=== PATIENT | male | born 1950 | race Caucasian/White ===

== ENCOUNTER 2019-03-07 04:17 | Inpatient (IN) | payer MEDICARE, BC ==
[~2019-03-07] VITALS: Ht 170.2 cm; Wt 77.1 kg
--- NOTE | 2019-03-07 04:20 | NUR ---
Patient A&O x4. Ambulating with steady gait with at bedside. c/o dizziness, Nausea, vomiting x5, and weakness. since 1800 yesterday. per patient hasnt been able to keep food or fluids. Patient breathing even and unlabored. Speech is clear and able to make needs known / follow commands. Denies any distress. patient noted diaphoretic and tachypneic. O2 sat at 97% on RA. POC blood sugar at 157.
--- NOTE | 2019-03-07 04:35 | NUR ---
Dr. Tamayo at bedside for MSE
[2019-03-07] MEDS ORDERED: HYDROMORPHONE 1 MG/1 ML DISP.SYRIN IV ONE (04:45)
[2019-03-07] MEDS ORDERED: IV NORMAL SALINE 1000 ML BAG IV ONE ×3 (04:45→06:30)
[2019-03-07] MEDS ORDERED: ONDANSETRON 4 MG/2 ML VIAL IV ONE (04:45)
[2019-03-07] MEDS ORDERED: HYDROMORPHONE 1 MG/1 ML DISP.SYRIN ONE (04:48)
[2019-03-07] MEDS ORDERED: ONDANSETRON 4 MG/2 ML VIAL ONE (04:48)
[2019-03-07 05:19] LABS: BASOPHILS # (AUTO) 0.1 K/uL (0.0-8.0); BASOPHILS % (AUTO) 0.4 % (0.0-2.0); EOSINOPHILS # (AUTO) 0.6 K/uL (0.0-0.7); EOSINOPHILS % (AUTO) 3.6 % (0.0-7.0); HEMATOCRIT 52.3 % (36.7-47.1); HEMOGLOBIN 17.6 g/dL (12.5-16.3); LYMPHOCYTES # (AUTO) 0.8 K/uL (20.0-40.0); MEAN CORPUSCULAR HEMOGLOBIN 30.6 uug (23.8-33.4); MEAN CORPUSCULAR HGB CONC 34 g/dL (32.5-36.3); MEAN CORPUSCULAR VOLUME 90.6 fL (73.0-96.2); MONOCYTES # (AUTO) 0.9 K/uL (2.0-10.0); MONOCYTES % (AUTO) 5.7 % (0.0-11.0); NEUTROPHILS # (AUTO) 13.6 K/uL (1.8-8.9); NEUTROPHILS % (AUTO) 85.3 % (38.5-71.5); PLATELET COUNT (AUTO) 209 K/uL (152-348); RED BLOOD CELL COUNT(AUTO) 5.77 MIL/uL (4.06-5.63)
--- NOTE | 2019-03-07 05:20 | NUR ---
Patient taken to CT scan in stable condition
[2019-03-07 05:25] LABS: CREATININE 1.8 mg/dL (0.6-1.3)
[2019-03-07 05:26] LABS: *BLOOD, URINE NEGATIVE (NEGATIVE); *CLARITY,URINE CLEAR (CLEAR); *COLOR,URINE DARK YELLOW (YELLOW); *KETONES,URINE 1+ (NEGATIVE); LEUKOCYTE ESTERASE ,URINE NEGATIVE (NEGATIVE); NITRITE, URINE NEGATIVE (NEGATIVE); PH,URINE 5.5 (5.0-8.0); UGLUCOSE NEGATIVE (NEGATIVE)
[2019-03-07 05:30] LABS: BILIRUBIN,DIRECT 0.2 mg/dL (0.0-0.2); BILIRUBIN,TOTAL 0.9 mg/dL (0.2-1.0); TOTAL PROTEIN, SERUM 7.5 g/dL (6.4-8.2)
[2019-03-07 05:33] LABS: *BILIRUBIN,URIN 2+ (NEGATIVE)
--- NOTE | 2019-03-07 05:39 | NUR ---
Patient back from CT scan in stable condition
[2019-03-07 05:53] LABS: BACTERIA,URINE MANY /HPF (NONE SEEN); RBC,URINE 0-3 /HPF (0-3); SQUAMOUS EPITHELIAL CELL,UR FEW /HPF (NONE SEEN); WBC,URINE 0-3 /HPF (0-3)
[2019-03-07 05:54] LABS: MUCUS,URINE FEW /LPF (0-FEW)
--- NOTE | 2019-03-07 06:28 | NUR ---
No home medication reported at this time, pt states he has no pertinent medical hx.
--- NOTE | 2019-03-07 06:31 | NUR ---
Patient awake A&O x4. Breathing even and unlabored. at bedside. NAD noted
--- NOTE | 2019-03-07 07:03 | NUR ---
Report given to Tima MUÑOZ
[2019-03-07] MEDS ORDERED: PIPERACILLIN SODIUM/TAZO 3.375 GM VIAL ONE (08:08)
[2019-03-07] MEDS ORDERED: PIPERACILLIN SODIUM/TAZOBACTAM 3.375 G in IV DEXTROSE 5% 50 ML IV ONE (08:15)
--- NOTE | 2019-03-07 08:30 | NUR ---
RECEIVED PATIENT FROM ER, PATIENT ALERT AND ORIENTED X4. NO ACUTE DISTRESS NOTED. PATIENT DENIES PAIN AND DISCOMFORT. BED IN LOWEST POSITION, SIDE RAILS UP X2, CALL LIGHT WITHIN REACH. WILL CONTINUE TO MONITOR.
--- NOTE | 2019-03-07 08:46 | NUR ---
pt transfered to floor in stable condition.
[2019-03-07 08:50] VITALS: BP 109/74
[2019-03-07] MEDS ORDERED: MORPHINE SULFATE 2 MG/1 ML DISP.SYRIN IV PRN (09:30)
[2019-03-07] MEDS ORDERED: ACETAMINOPHEN 325 MG TABLET PO PRN (09:30)
[2019-03-07] MEDS ORDERED: PANTOPRAZOLE SODIUM 40 MG VIAL IV SCH (09:30)
[2019-03-07] MEDS ORDERED: ONDANSETRON 4 MG/2 ML VIAL IV PRN (09:30)
[2019-03-07] MEDS ORDERED: diphenhydrAMINE 50 MG/1 ML VIAL IV PRN (10:15)
[2019-03-07] MEDS: ASPIRIN 81 MG TAB.CHEW PO SCH (10:25)
[2019-03-07] MEDS: FAMOTIDINE. 20 MG/2 ML VIAL IV SCH ×2 (10:25→20:20)
[2019-03-07] MEDS: IV NS 1000 ML 1,000 ML IV PRN (11:41)
[2019-03-07] MEDS ORDERED: PIPERACILLIN/TAZO 2.25 G in IV DEXTROSE 5% 50 ML IV SCH (14:00)
[2019-03-07 15:14] VITALS: BP 119/81
[2019-03-07] MEDS: PIPERACILLIN/TAZOBACTAM/D5W 3.375 G in PREMIXED 1 EACH IV SCH ×2 (16:07→23:01)
--- NOTE | 2019-03-07 18:45 | NUR ---
PATIENT RESTED THROUGHOUT DAY. NO SIGNS OF ACUTE DISTRESS. PATIENT DENIES PAIN AND DISCOMFORT. SAFETY MEASURES PROVIDED. WILL ENDORSE TO ONCOMING NURSE.
--- NOTE | 2019-03-07 19:20 | NUR ---
Received patient lying in bed. AAOx4. In no acute distress. Denies any pain or SOB at this time. Sinus tachy on tele at 112/min. On O2 at 2LPM via NC in place for comfort. IV site on right AC intact and patent. Safety measure initiated and call ardon within reached.
--- NOTE | 2019-03-07 20:00 | NUR ---
Patient requested another IV site. Started another IV site on right wrist #22G. IV ABX infusing on right wrist area. Right AC IV site heplock.
[2019-03-07 20:17] VITALS: BP 133/97
[2019-03-08 00:53] VITALS: BP 121/82
--- NOTE | 2019-03-08 05:30 | NUR ---
Patient requested to have IV site on right AC removed. IV line on right wrist area remains intact and patent.
[2019-03-08 05:38] VITALS: BP 123/83
--- NOTE | 2019-03-08 06:23 | NUR ---
AAOx4. Sinus tachy on tele at 120/min. On O2 at 2LPM via NC in place for comfort. O2 sat at 98%. AMbulating helps the patient breathing as well per patient. Noted with audible wheezing. IV site on right wrist intact and patent. Safety measure maintained and call ardon within reached.
[2019-03-08] MEDS: IV NS 1000 ML 1,000 ML IV PRN (06:34)
--- NOTE | 2019-03-08 06:55 | NUR ---
Informed [employer] Yonatan of patients concern regarding breathing/wheezing and request to be seen by hospitalist this AM.
--- NOTE | 2019-03-08 07:02 | NUR ---
JANUSZ Tam at bedside.
[2019-03-08] MEDS ORDERED: IV NS 1000 ML 1,000 ML IV PRN (07:09)
[2019-03-08] MEDS ORDERED: LORAZEPAM 2 MG/1 ML VIAL IV PRN (07:15)
--- NOTE | 2019-03-08 07:20 | NUR ---
RECEIVED PATIENT SITTING UP IN CHAIR. PATIENT ANXIOUS, MARKETING DESIGNER AIYANA AT BEDSIDE WITH PATIENT. PATIENT DENIES PAIN AND DISCOMFORT. WILL CONTINUE TO MONITOR.
[2019-03-08] MEDS ORDERED: ALBUTEROL SULFATE 2.5 MG/ 0.5 ML NEBU NEB PRN (07:30)
[2019-03-08] MEDS ORDERED: ALBUTEROL SULFATE 2.5 MG/3 ML NEBU NEB PRN (07:45)
[2019-03-08 07:57] LABS: BASOPHILS % (AUTO) 0.3 % (0.0-2.0); LYMPHOCYTES # (AUTO) 0.6 K/uL (20.0-40.0); MEAN CORPUSCULAR HEMOGLOBIN 30.9 uug (23.8-33.4); MEAN CORPUSCULAR HGB CONC 33 g/dL (32.5-36.3); MONOCYTES # (AUTO) 0.6 K/uL (2.0-10.0); NEUTROPHILS # (AUTO) 9.7 K/uL (1.8-8.9)
[2019-03-08 08:02] LABS: EOSINOPHILS % (AUTO) 8.8 % (0.0-7.0); HEMATOCRIT 47.7 % (36.7-47.1); HEMOGLOBIN 15.8 g/dL (12.5-16.3); LYMPHOCYTES % (AUTO) 4.8 % (20.5-51.5); MEAN CORPUSCULAR VOLUME 93.1 fL (73.0-96.2); MONOCYTES % (AUTO) 4.7 % (0.0-11.0); NEUTROPHILS % (AUTO) 81.4 % (38.5-71.5); PLATELET COUNT (AUTO) 222 K/uL (152-348); RED BLOOD CELL COUNT(AUTO) 5.12 MIL/uL (4.06-5.63)
[2019-03-08 08:03] LABS: WHITE BLOOD COUNT (AUTO) 11.9 K/uL (3.6-10.2)
[2019-03-08] MEDS ORDERED: FAMOTIDINE. 20 MG/2 ML VIAL IV SCH (09:00)
[2019-03-08] MEDS: ENOXAPARIN SODIUM 40 MG/0.4 ML DISP.SYRIN SQ SCH (09:00)
[2019-03-08 09:03] LABS: THYROID STIMULATING HORMONE 2.196 mIU/mL (0.358-3.740)
[2019-03-08] MEDS: PIPERACILLIN/TAZOBACTAM/D5W 3.375 G in PREMIXED 1 EACH IV SCH ×3 (09:22→23:45)
[2019-03-08] MEDS: ASPIRIN 81 MG TAB.CHEW PO SCH (09:22)
[2019-03-08 09:33] LABS: LIPASE 192 U/L (73-393)
[2019-03-08 09:50] LABS: CARBON DIOXIDE 21 mmol/L (21-32); CHOLESTEROL 111 mg/dL (<200); CREATININE 1.6 mg/dL (0.6-1.3); GLUCOSE 132 mg/dL (74-106); HDL CHOLESTEROL 20 mg/dL (40-60); MAGNESIUM 2.1 mg/dL (1.8-2.4); PHOSPHOROUS 4.1 mg/dL (2.5-4.9); TRIGLYCERIDES 114 MG/DL (30-150); UREA NITROGEN, BLOOD 46 mg/dL (7-18)
[2019-03-08 09:53] LABS: CHLORIDE 103 mmol/L (98-107)
[2019-03-08] MEDS ORDERED: LIDOCAINE HCL 1% 20 ML VIAL IJ PRN (10:15)
[2019-03-08 11:14] VITALS: BP 139/97
[2019-03-08] MEDS: ALBUTEROL SULFATE 2.5 MG/3 ML NEBU NEB SCH ×3 (11:43→19:37)
[2019-03-08] MEDS: IPRATROPIUM BROMIDE 0.5 MG/2.5 ML NEBU NEB SCH ×3 (11:43→19:36)
[2019-03-08] MEDS: methylPREDNISolone SOD SUCC 40 MG/ML VIAL IV SCH ×2 (11:59→21:25)
[2019-03-08] MEDS ORDERED: OSELTAMIVIR PHOSPHATE 75 MG CAPSULE PO SCH (13:30)
[2019-03-08] MEDS ORDERED: OSELTAMIVIR NG/GT 30 MG/5 ML LIQ PO SCH (14:30)
[2019-03-08] MEDS: AZITHROMYCIN IV 500 MG in IV DEXTROSE 5% 250 ML IV SCH (14:39)
[2019-03-08] MEDS: OSELTAMIVIR PHOSPHATE 75 MG CAPSULE PO SCH ×2 (14:56→21:25)
[2019-03-08 15:31] VITALS: BP 104/64
--- NOTE | 2019-03-08 18:45 | NUR ---
PATIENT RESTED INTERMITTENTLY THROUGHOUT DAY. PATIENT GIVEN ATIVAN FOR ANXIETY. PATIENT SLEPT THROUGHOUT DAY. PATIENT HAS SKIN BIOPSY FROM DR. COHEN. PATIENT PLACED ON ISOLATION FOR SUSPECTED TB. SAFETY MEASURES PROVIDED. NO ACUTE DISTRESS NOTED.WILL ENDORSE TO ONCOMING NURSE.
--- NOTE | 2019-03-08 19:30 | NUR ---
Alert and oriented x 4. Patient sleeping when nurse entered room, but easily arousable. No Acute distress noted at this time. Patient on droplet isolation for potential TB. Skin biopsy pending at this time. Tele patient on sinus rhythm. No C/O pain at this time. Will continue to monitor.
[2019-03-08 20:00] VITALS: BP 106/72
[2019-03-08] MEDS: FAMOTIDINE 20 MG TABLET PO SCH (21:25)
[2019-03-08] MEDS: ALPRAZOLAM 0.5 MG TABLET PO PRN (21:30)
[2019-03-09] VITALS: BP 108/65
[2019-03-09 04:46] VITALS: BP 83/54
[2019-03-09] MEDS: methylPREDNISolone SOD SUCC 40 MG/ML VIAL IV SCH ×2 (05:23→21:06)
[2019-03-09 06:34] LABS: BASOPHILS % (AUTO) 0.2 % (0.0-2.0); EOSINOPHILS # (AUTO) 0.3 K/uL (0.0-0.7); EOSINOPHILS % (AUTO) 2.9 % (0.0-7.0); HEMOGLOBIN 12.8 g/dL (12.5-16.3); LYMPHOCYTES # (AUTO) 0.6 K/uL (20.0-40.0); LYMPHOCYTES % (AUTO) 5.9 % (20.5-51.5); MEAN CORPUSCULAR HEMOGLOBIN 30.9 uug (23.8-33.4); MEAN CORPUSCULAR HGB CONC 34 g/dL (32.5-36.3); MEAN CORPUSCULAR VOLUME 91.8 fL (73.0-96.2); MONOCYTES # (AUTO) 0.4 K/uL (2.0-10.0); MONOCYTES % (AUTO) 3.6 % (0.0-11.0); NEUTROPHILS # (AUTO) 9.4 K/uL (1.8-8.9); NEUTROPHILS % (AUTO) 87.4 % (38.5-71.5); PLATELET COUNT (AUTO) 165 K/uL (152-348); RED BLOOD CELL COUNT(AUTO) 4.14 MIL/uL (4.06-5.63); WHITE BLOOD COUNT (AUTO) 10.8 K/uL (3.6-10.2)
--- NOTE | 2019-03-09 06:34 | NUR ---
Patient slept well during the night with PRN Xanax given. Droplet isolation maintained during this shift. IV in right wrist intact and patent flowing NS at 75 mL/HR. Zosyn and Zithromycin ordered for antibiotic therapy. Rash noted on patient abdomen. No pain stated at this time. Will continue to monitor.
[2019-03-09 06:45] LABS: CREATININE 1.2 mg/dL (0.6-1.3); POTASSIUM 3.7 mmol/L (3.5-5.1)
[2019-03-09] MEDS: ALBUTEROL SULFATE 2.5 MG/3 ML NEBU NEB SCH ×4 (07:21→20:15)
[2019-03-09] MEDS: IPRATROPIUM BROMIDE 0.5 MG/2.5 ML NEBU NEB SCH ×4 (07:21→20:15)
[2019-03-09 07:58] LABS: ABG BASE EXCESS 0.7 mmol/L; ABG HCO3 24.1 mmol/L; ABG PCO2 34.7 mmHg (35.0-45.0); ABG PH 7.459 (7.350-7.450); ABG PO2 61.5 mmHg (75.0-100.0); ABG SITE LEFT BRACHIAL; MetHb 0.3 % (0.0-1.5); VENT MODE ROOM AIR
[2019-03-09] MEDS: PIPERACILLIN/TAZOBACTAM/D5W 3.375 G in PREMIXED 1 EACH IV SCH ×3 (08:44→23:28)
[2019-03-09] MEDS: OSELTAMIVIR PHOSPHATE 75 MG CAPSULE PO SCH ×2 (08:45→21:06)
[2019-03-09] MEDS: ASPIRIN 81 MG TAB.CHEW PO SCH (08:45)
[2019-03-09] MEDS: FAMOTIDINE 20 MG TABLET PO SCH ×2 (08:45→21:06)
[2019-03-09] MEDS: ENOXAPARIN SODIUM 40 MG/0.4 ML DISP.SYRIN SQ SCH (09:00)
[2019-03-09 12:06] VITALS: BP 131/75
[2019-03-09] MEDS ORDERED: FUROSEMIDE 40 MG/4 ML VIAL IV ONE (12:30)
[2019-03-09] MEDS: AZITHROMYCIN IV 500 MG in IV DEXTROSE 5% 250 ML IV SCH (14:49)
[2019-03-09 15:27] VITALS: BP 122/72
--- NOTE | 2019-03-09 18:22 | NUR ---
Patient rested throughout day. No acute distress noted throughout shift. Patient denies pain and discomfort. Patient still on droplet precaution. Safety measures provided. Will endorse to oncoming nurse.
--- NOTE | 2019-03-09 19:30 | NUR ---
Alert and oriented x 4. No Acute distress noted at this time. Patient on droplet isolation for potential TB. Skin biopsy pending at this time. Tele patient on sinus rhythm. No C/O pain at this time. Will continue to monitor.
[2019-03-09 20:07] VITALS: BP 135/82
[2019-03-09] MEDS: ALPRAZOLAM 0.5 MG TABLET PO PRN (21:24)
[2019-03-09 23:51] VITALS: BP 134/76
[2019-03-10 04:27] VITALS: BP 134/80
[2019-03-10] MEDS ORDERED: CALCIUM CARBONATE 500 MG TAB.CHEW PO PRN (05:15)
[2019-03-10 06:32] LABS: BASOPHILS % (AUTO) 0.3 % (0.0-2.0); EOSINOPHILS # (AUTO) 0.5 K/uL (0.0-0.7); EOSINOPHILS % (AUTO) 3.5 % (0.0-7.0); HEMATOCRIT 38.9 % (36.7-47.1); HEMOGLOBIN 12.9 g/dL (12.5-16.3); LYMPHOCYTES # (AUTO) 0.7 K/uL (20.0-40.0); MEAN CORPUSCULAR HEMOGLOBIN 30.2 uug (23.8-33.4); MEAN CORPUSCULAR HGB CONC 33 g/dL (32.5-36.3); MEAN CORPUSCULAR VOLUME 90.9 fL (73.0-96.2); MONOCYTES % (AUTO) 7.3 % (0.0-11.0); NEUTROPHILS # (AUTO) 11.6 K/uL (1.8-8.9); NEUTROPHILS % (AUTO) 83.9 % (38.5-71.5); PLATELET COUNT (AUTO) 227 K/uL (152-348); RED BLOOD CELL COUNT(AUTO) 4.28 MIL/uL (4.06-5.63); WHITE BLOOD COUNT (AUTO) 13.8 K/uL (3.6-10.2)
[2019-03-10 06:48] LABS: CREATININE 1.1 mg/dL (0.6-1.3); MAGNESIUM 2.2 mg/dL (1.8-2.4); PHOSPHOROUS 3.7 mg/dL (2.5-4.9); POTASSIUM 4.1 mmol/L (3.5-5.1)
--- NOTE | 2019-03-10 07:45 | NUR ---
PATIENT RESTING COMFORTABLY IN BED AT THIS TIME. NO SIGNS OF RESPIRATORY DISTRESS. COMPLAINING OF INDIGESTION (PEPCID WILL BE ADMINISTERED FOR ROUTINE MORNING MEDICATIONS). ISOLATION PRECAUTIONS IMPLEMENTED. DENIES ANY PAIN OR SOB. PATIENT ON RA AT THIS TIME, SATURATING AT 93%. STABLE CONDITION. SAFETY MEASURES IMPLEMENTED. WILL CONTINUE TO MONITOR THROUGHOUT SHIFT.
[2019-03-10] MEDS: methylPREDNISolone SOD SUCC 40 MG/ML VIAL IV SCH (08:15)
[2019-03-10] MEDS: ASPIRIN 81 MG TAB.CHEW PO SCH (08:15)
[2019-03-10] MEDS: FAMOTIDINE 20 MG TABLET PO SCH ×2 (08:15→20:21)
[2019-03-10] MEDS: PIPERACILLIN/TAZOBACTAM/D5W 3.375 G in PREMIXED 1 EACH IV SCH (08:16)
[2019-03-10] MEDS: OSELTAMIVIR PHOSPHATE 75 MG CAPSULE PO SCH ×2 (08:16→20:21)
[2019-03-10] MEDS: ENOXAPARIN SODIUM 40 MG/0.4 ML DISP.SYRIN SQ SCH (08:16)
[2019-03-10] MEDS: IPRATROPIUM BROMIDE 0.5 MG/2.5 ML NEBU NEB SCH ×4 (08:22→19:39)
[2019-03-10] MEDS: ALBUTEROL SULFATE 2.5 MG/3 ML NEBU NEB SCH ×4 (08:22→19:39)
[2019-03-10 11:03] VITALS: BP 148/86
[2019-03-10 15:11] VITALS: BP 152/80
[2019-03-10] MEDS: AZITHROMYCIN IV 500 MG in IV DEXTROSE 5% 250 ML IV SCH (15:31)
[2019-03-10] MEDS ORDERED: CEFTRIAXONE 2 G in IV DEXTROSE 5% 100 ML IV SCH (17:00)
[2019-03-10] MEDS: predniSONE 20 MG TABLET PO SCH (17:29)
--- NOTE | 2019-03-10 18:49 | NUR ---
PATIENT RESTING COMFORTABLY IN BED AT THIS TIME. ON RA SATURATING WNL FOR PATIENT AT THIS TIME. NO SIGNS OF RESPIRATORY DISTRESS. DENIES PAIN OR SOB. COMPLAINING OF GENERALIZED ITCHINESS - WILL NOTIFY MD FOR POSSIBLE ORDERS. ISOLATION PRECAUTION STRICTLY IMPLEMENTED. SAFETY MEASURES IMPLEMENTED. WILL CONTINUE TO MONITOR UNTIL END OF SHIFT.
[2019-03-10 19:56] VITALS: BP 139/83
[2019-03-10 20:00] VITALS: BP 139/83
--- NOTE | 2019-03-10 20:03 | NUR ---
PATIENT ALERT AND ORIENTED X 4. ON DOPLET PRECAUTIONS. ON ROOM AIR AND SATING AT 95%. IV IN LEFT FOREARM INTACT AND PATENT WITH TKO FLUIDS RUNNING. REQUESTING BENADRYL PO FOR GENERAL ITCHING. WILL ADMINISTER WHEN AVAILABLE. WILL CONTINUE TO MONITOR.
[2019-03-10] MEDS: diphenhydrAMINE 25 MG CAP PO PRN (20:21)
[2019-03-11 04:00] VITALS: BP 150/92
[2019-03-11] MEDS: diphenhydrAMINE 25 MG CAP PO PRN (04:07)
[2019-03-11 05:36] VITALS: BP 150/92
[2019-03-11 06:11] LABS: BASOPHILS % (AUTO) 0.3 % (0.0-2.0); EOSINOPHILS # (AUTO) 1.7 K/uL (0.0-0.7); EOSINOPHILS % (AUTO) 11.9 % (0.0-7.0); HEMATOCRIT 37.1 % (36.7-47.1); HEMOGLOBIN 12.5 g/dL (12.5-16.3); LYMPHOCYTES # (AUTO) 0.7 K/uL (20.0-40.0); LYMPHOCYTES % (AUTO) 5.2 % (20.5-51.5); MEAN CORPUSCULAR HEMOGLOBIN 30.4 uug (23.8-33.4); MEAN CORPUSCULAR HGB CONC 34 g/dL (32.5-36.3); MEAN CORPUSCULAR VOLUME 90.3 fL (73.0-96.2); MONOCYTES # (AUTO) 1.7 K/uL (2.0-10.0); MONOCYTES % (AUTO) 11.9 % (0.0-11.0); NEUTROPHILS # (AUTO) 10.1 K/uL (1.8-8.9); NEUTROPHILS % (AUTO) 70.7 % (38.5-71.5); PLATELET COUNT (AUTO) 190 K/uL (152-348); RED BLOOD CELL COUNT(AUTO) 4.11 MIL/uL (4.06-5.63); WHITE BLOOD COUNT (AUTO) 14.2 K/uL (3.6-10.2)
[2019-03-11 06:25] LABS: MAGNESIUM 2.1 mg/dL (1.8-2.4); POTASSIUM 4.1 mmol/L (3.5-5.1)
--- NOTE | 2019-03-11 06:28 | NUR ---
Patient slept well during the night. C/O itching in palms this morning. Benadryl given. IV in left forearm running TKO at this time. Side rails up bilaterally. Will continue to monitor.
--- NOTE | 2019-03-11 07:30 | NUR ---
Patient in Bed, awake and verbally responsive. No signs of distress noted. No SOB. No complain of Pain or discomfort. No complain of Itching at this time. Kept comfortable. Will continue to monitor.
[2019-03-11] MEDS: IPRATROPIUM BROMIDE 0.5 MG/2.5 ML NEBU NEB SCH ×2 (07:33→11:28)
[2019-03-11] MEDS: ALBUTEROL SULFATE 2.5 MG/3 ML NEBU NEB SCH ×2 (07:33→11:28)
[2019-03-11 07:54] LABS: BAND % (MANUAL) 1 % (0-10); EOSINOPHILS % (MANUAL) 14 % (0-8); LYMPHOCYTES % (MANUAL) 6 % (20-40); MONOCYTES % (MANUAL) 8 % (2-10); NEUTROPHILS % (MANUAL) 71 % (42-75)
[2019-03-11] MEDS: FAMOTIDINE 20 MG TABLET PO SCH (08:05)
[2019-03-11] MEDS: ASPIRIN 81 MG TAB.CHEW PO SCH (08:05)
[2019-03-11] MEDS: predniSONE 20 MG TABLET PO SCH (08:05)
[2019-03-11] MEDS: OSELTAMIVIR PHOSPHATE 75 MG CAPSULE PO SCH (08:05)
[2019-03-11] MEDS: ENOXAPARIN SODIUM 40 MG/0.4 ML DISP.SYRIN SQ SCH (09:39)
[2019-03-11 11:08] LABS: CRYPTOCOCCUS AB, SERUM Negative (Negative)
[2019-03-11 11:33] VITALS: BP 116/60
[2019-03-11 11:50] VITALS: BP 147/87
[2019-03-11] MEDS ORDERED: METH4TAB3 PO (12:31)
[2019-03-11] MEDS ORDERED: FAMO20TA8 PO (12:31)
[2019-03-11] MEDS ORDERED: LEVO750T21 PO (12:31)
[2019-03-11] MEDS ORDERED: FUROSEMIDE 20 MG/2 ML VIAL IV ONE (13:00)
--- NOTE | 2019-03-11 13:41 | NUR ---
Patient with Order to Discharge Home today, Discharged Instruction given and verbalized Understanding. All belongings signed and sent to patient, Removed IV site and wrist Band. Patent was accompanied by to Private car in stable condition.
[2019-03-12 21:15] LABS: COCCIDIOIDES CF SERUM Negative (Neg:<1:2)
== END 2019-03-11 13:45 | disposition home or self-care (01) | DRG 871 ==
LOC: ER 04:17 → MEDSURG3 08:26 → TELE3 10:09 → MEDSURG3 03-11 10:49
PROVIDERS: ADMIT Nurse Practitioner Acute Care; ATTEND Nurse Practitioner Acute Care
DX: A41.9 Sepsis, unspecified organism (principal); K85.90 Acute pancreatitis without necrosis or infection, unspecified; I21.A1 Myocardial infarction type 2; J18.9 Pneumonia, unspecified organism; N17.0 Acute kidney failure with tubular necrosis; I50.33 Acute on chronic diastolic (congestive) heart failure; N39.0 Urinary tract infection, site not specified; R18.8 Other ascites; E87.2 Acidosis; J98.11 Atelectasis; J43.9 Emphysema, unspecified; Z82.49 Family history of ischemic heart disease and other diseases of the circulatory system; N40.0 Benign prostatic hyperplasia without lower urinary tract symptoms; K57.90 Diverticulosis of intestine, part unspecified, without perforation or abscess without bleeding; Z90.49 Acquired absence of other specified parts of digestive tract; K40.90 Unilateral inguinal hernia, without obstruction or gangrene, not specified as recurrent; I70.0 Atherosclerosis of aorta; L50.0 Allergic urticaria; F17.290 Nicotine dependence, other tobacco product, uncomplicated
CPT/HCPCS: 36415; 36600; 70030-TC; 71045; 71250; 76604; 76700; 82785; 83605; 83690; 83735; 84100; 84443; 85025; 85730; 86803; 87040; 87070; 87086; 87328; 87400; 87806; 93005; 93307; 94640; 94664; A4663; G0378; J0456; J0696; J1170; J1200; J1650; J1940; J2060; J2270; J2405; J2543; J2920; J3490; J3590; J7030; J7040; J7060; J7512; Q0163